=== PATIENT | female | born 1985 | race Two or more races ===

== ENCOUNTER 2019-08-06 18:40 | Emergency (ER) | payer MEDICAID ==
[~2019-08-06] VITALS: Ht 162.6 cm; Wt 63.5 kg
[2019-08-06 18:40] VITALS: BP 122/76
--- NOTE | 2019-08-06 18:40 | NUR ---
ED Nurse Note: PT brought in by [place] [facility] [place] [facility] for C/O abd pain with n/v . pt reports having abd pain all day and started vomiting about an hour ago.
--- NOTE | 2019-08-06 18:50 | NUR ---
ED Nurse Note: blood and urine sample collected and sent to lab
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
--- NOTE | 2019-08-06 18:59 | NUR ---
ED Nurse Note: all due medication given at this time. pt is in bed resting. connected to physics technical officer. will continue to monitor.
[2019-08-06 19:01] LABS: APPEARANCE,URINE CLEAR; BILIRUBIN, URINE NEGATIVE (NEGATIVE); COLOR,URINE PALE YELLOW; GLUCOSE, URINE (UA) NEGATIVE (NEGATIVE); KETONES,URINE NEGATIVE (NEGATIVE); LEUKOCYTE ESTERASE ,URINE NEGATIVE (NEGATIVE); NITRITE,URINE NEGATIVE (NEGATIVE); PH,URINE 6 (4.5-8.0); PROTEIN,URINE NEGATIVE (NEGATIVE); UROBILINOGEN,URINE NORMAL MG/DL (0.0-1.0)
--- NOTE | 2019-08-06 19:05 | NUR ---
ED Nurse Note: Report given to Nicole Trevizo RN. Endorsed plan of care.
[2019-08-06 19:09] LABS: BASOPHILS % (AUTO) 0.9 % (0.0-2.0); EOSINOPHILS % (AUTO) 1.5 % (0.0-3.0); HEMATOCRIT 42.8 % (37.0-47.0); HEMOGLOBIN 13.8 G/DL (12.0-16.0); LYMPHOCYTES % (AUTO) 22.6 % (20.0-45.0); MEAN CORPUSCULAR VOLUME 97 FL (80-99); PLATELET COUNT 259 K/UL (150-450); RED BLOOD COUNT 4.43 M/UL (4.20-5.40); RED CELL DISTRIBUTION WIDTH 12.2 % (11.6-14.8); WHITE BLOOD COUNT 7.5 K/UL (4.8-10.8)
[2019-08-06 19:20] LABS: ANION GAP 13 mmol/L (5-15); BLOOD UREA NITROGEN 9 mg/dL (7-18); CALCIUM 8.5 MG/DL (8.5-10.1); CARBON DIOXIDE 22 MMOL/L (21-32); CHLORIDE 109 MMOL/L (98-107); CREATININE 0.8 MG/DL (0.55-1.30); POTASSIUM 3.2 MMOL/L (3.5-5.1); SODIUM 144 MMOL/L (136-145)
[2019-08-06 19:24] LABS: ALANINE AMINOTRANSFERASE 46 U/L (12-78); ALKALINE PHOSPHATASE 77 U/L (46-116); ASPARTATE AMINO TRANSFERASE 23 U/L (15-37); BILIRUBIN,TOTAL 0.7 MG/DL (0.2-1.0)
--- NOTE | 2019-08-06 19:35 | NUR ---
ED Nurse Note: Recieved report to resume care, pt returning from imaging having CT scan done, pt placed on cardiac monitoring, has c/o abdominal paina t 8/10 and nausea,. pt was prior medicated and states meds nto effective, reported to MD, pt has patent saline lock, will resume care as ordered and closely monitor for any changes or new med orders, waiting for imaging results.
--- NOTE | 2019-08-06 19:55 | Diagnostic Imaging Report ---
History: PAIN Exam: CT ABDOMEN + PELVIS Without Contrast Technique more: CTDI is 4.50 mGy and DLP is 238.40 mGy-cm. Technique more: One or more of the following dose reduction techniques were used: automated exposure control, adjustment of the mA and/or kV according to patient size, use of iterative reconstruction technique. Comparison: None available FINDINGS: Lung bases are clear. A couple of small right and punctate left nonobstructing intrarenal stones. No hydronephrosis, perinephric stranding or evidence of ureteral or bladder stone. Other abdominal solid organs and abdominal aorta appear within limits on noncontrast imaging. Gallbladder is not identified. No bowel dilation or free air. The appendix is not identified, no secondary signs. The ovaries/adnexa, uterus and bladder appear unremarkable on noncontrast imaging. No free fluid. IMPRESSION: No evidence of acute process. A couple of small right and punctate left nonobstructing intrarenal stones. No hydronephrosis, perinephric stranding or evidence of ureteral or bladder stone.
[2019-08-06] MEDS ORDERED: fentaNYL 100 mcg/2 mL IV ONE (20:00)
[2019-08-06] MEDS ORDERED: PERCOCET 5-3251 EACH ORAL (20:19)
[2019-08-06] MEDS ORDERED: ZOFRAN4 M3 ORAL (20:19)
[2019-08-06 20:30] VITALS: BP 126/71
--- NOTE | 2019-08-06 20:50 | NUR ---
ER DISCHARGE NOTE: Patient is cleared to be discharged per ERMD, pt is aox4, on room air, with stable vital signs. pt was given dc and prescription instructions, pt was able to verbalize understanding, pt id band and iv site removed without complications. pt is able to ambulate with steady gait. pt took all belongings.pt with family.
[2019-08-06 20:55] VITALS: BP 126/71
== END 2019-08-06 20:55 | disposition home or self-care (01) ==
LOC: EDBD 18:40 → EMR 19:00
DX: R10.32 Left lower quadrant pain (principal); T74.11XA Adult physical abuse, confirmed, initial encounter; S10.83XA Contusion of other specified part of neck, initial encounter; E87.6 Hypokalemia; Y04.8XXA Assault by other bodily force, initial encounter; Y07.01 Husband, perpetrator of maltreatment and neglect
CPT/HCPCS: 36415; 74176; 80053; 80307; 81003; 81025; 83690; 83735; 85025; 96361; 96374; 96375; 96376; J2405; J3010; J7030; S0028; Z7502; 99284; J8499